=== PATIENT | male | born 1940 | race Caucasian/White ===

== ENCOUNTER 2023-10-20 15:37 | Outpatient (CLI) | payer MEDICARE | END 2023-10-20 15:38 | disposition home or self-care (01) | LOC: CSHCT 15:37 | PROVIDERS: ATTEND Internal Medicine Cardiovascular Disease | DX: J90 Pleural effusion, not elsewhere classified (principal); Z87.09 Personal history of other diseases of the respiratory system; I25.10 Atherosclerotic heart disease of native coronary artery without angina pectoris; I25.84 Coronary atherosclerosis due to calcified coronary lesion | CPT/HCPCS: 71270; 82565 ==

== ENCOUNTER 2023-11-11 11:56 | Outpatient (CLI) | payer MEDICARE | END 2023-11-11 11:57 | disposition home or self-care (01) | LOC: CSHRAD 11:56 | PROVIDERS: ATTEND Nurse Practitioner | DX: I47.20 Ventricular tachycardia, unspecified (principal); I11.0 Hypertensive heart disease with heart failure; I50.22 Chronic systolic (congestive) heart failure | CPT/HCPCS: 71046 ==